=== PATIENT | male | born 1970 | race Caucasian/White ===

== ENCOUNTER 2022-05-26 18:49 | Emergency (ER) | payer BC ==
[~2022-05-26] VITALS: Ht 175.3 cm; Wt 83.9 kg
--- NOTE | 2022-05-26 19:03 | NUR ---
51 years old male alert, oriented x4 walk in to er c/o abdominal pain today.
[2022-05-26 19:39] LABS: MEAN CORPUSCULAR HEMOGLOBIN 29.2 uug (23.8-33.4); MEAN CORPUSCULAR VOLUME 86.6 fL (73.0-96.2); PLATELET COUNT (AUTO) 222 K/uL (152-348)
[2022-05-26 19:48] LABS: CARBON DIOXIDE 30 mmol/L (21-32); CHLORIDE 103 mmol/L (98-107); CREATININE 1.3 mg/dL (0.6-1.3); GLUCOSE 132 mg/dL (74-106); POTASSIUM 4.1 mmol/L (3.5-5.1); UREA NITROGEN, BLOOD 19 mg/dL (7-18)
[2022-05-26 19:57] LABS: ALANINE AMINOTRANSFERASE 66 U/L (16-63); ALKALINE PHOSPHATASE 91 U/L (50-136); ASPARTATE AMINOTRANSFERASE 37 U/L (15-37); BILIRUBIN,DIRECT 0.2 mg/dL (0.0-0.2); BILIRUBIN,TOTAL 0.8 mg/dL (0.2-1.0); LIPASE 103 U/L (73-393); TOTAL PROTEIN, SERUM 8.4 g/dL (6.4-8.2)
--- NOTE | 2022-05-26 19:59 | NUR ---
Patient resting in bed, lab at bedside, no s/s of any distress noted at this time. Patient updated on plan of care, bedside EKG done for MD review. Patient remains alert and oriented x4, awaiting results. Will continue to monitor.
[2022-05-26] MEDS ORDERED: SWABABLE VALVE TRANSFER SET EA MC ONE (21:00)
[2022-05-26] MEDS ORDERED: IOHEXOL 300MG/ML 100 ML INFUS..BTL ONE (21:00)
--- NOTE | 2022-05-26 21:12 | NUR ---
Patient to CT via wheel chair at this time.
--- NOTE | 2022-05-26 21:58 | NUR ---
Ambulated to bathroom for urine specimen. Collected and sent to lab.
[2022-05-26] MEDS ORDERED: KETOROLAC TROMETHAMINE 30 MG INJ ONE (22:05)
[2022-05-26] MEDS ORDERED: KETOROLAC TROMETHAMINE 30 MG INJ IVP ONE (22:15)
[2022-05-26 22:17] LABS: *BILIRUBIN,URIN NEGATIVE (NEGATIVE); *BLOOD, URINE 2+ (NEGATIVE); *CLARITY,URINE CLEAR (CLEAR); *COLOR,URINE YELLOW (YELLOW); *KETONES,URINE NEGATIVE (NEGATIVE); *UROBILINOGEN,URINE 0.2 E.U./dl (NORMAL); LEUKOCYTE ESTERASE ,URINE NEGATIVE (NEGATIVE); NITRITE, URINE NEGATIVE (NEGATIVE); UGLUCOSE NEGATIVE (NEGATIVE)
[2022-05-26 22:30] LABS: BACTERIA,URINE FEW /HPF (NONE SEEN); SQUAMOUS EPITHELIAL CELL,UR FEW /HPF (NONE SEEN); WBC,URINE NONE SEEN /HPF (0-3)
[2022-05-26 22:31] LABS: URINE AMORPHOUS URATE FEW /HPF
--- NOTE | 2022-05-26 22:49 | NUR ---
Patient was medicated for pain as per order, continues to rest and awaiti CT report. No s/s of any distress noted.
--- NOTE | 2022-05-26 23:18 | NUR ---
MD at bedside talking with patient.
[2022-05-26 23:43] VITALS: BP 153/85
[2022-05-26] MEDS ORDERED: HYDR-3980 PO (23:52)
[2022-05-26] MEDS ORDERED: PROC10TA29 PO (23:52)
[2022-05-26] MEDS ORDERED: KETO10TA2 PO (23:52)
--- NOTE | 2022-05-26 23:55 | NUR ---
ACI given remains stable for discharge home. HL removed.
== END 2022-05-27 00:01 | disposition home or self-care (01) ==
LOC: ER 18:49
DX: N13.2 Hydronephrosis with renal and ureteral calculous obstruction (principal); R73.03 Prediabetes; E88.81 Metabolic syndrome and other insulin resistance; R94.31 Abnormal electrocardiogram [ECG] [EKG]; E78.1 Pure hyperglyceridemia
CPT/HCPCS: 99285; 74177; 96374; 80076; 80048; 81001; 83036; 83690; 85025; 84484; 36415; 93005; J1885; Q9967